=== PATIENT | female | born 1975 | race Caucasian/White ===

== ENCOUNTER 2018-06-24 04:46 | Day surgery (SDC) | payer BC, OTHER ==
[2018-06-22 18:10] VITALS: BMI 25.7
--- NOTE | 2018-06-24 13:23 | HP ---
History & Physical Update - History History: No Change - Physical Physical: No Change - Assessment Assessment: No Change - Plan Plan: No Change (Agree with H&P from 06/22/18, for hysteroscopic polypectomy and D &C)
[2018-06-24] MEDS ORDERED: MIDAZOLAM HCL 2 MG/2 ML SINGLE DOSE VIAL ONE (13:58)
[2018-06-24] MEDS ORDERED: DEXAMETHASONE SOD PHOSPHATE 4 MG/1 ML VIAL ONE (13:58)
[2018-06-24] MEDS ORDERED: PROPOFOL 20 ML ONE ×2 (13:58→14:12)
[2018-06-24] MEDS ORDERED: fentaNYL CITRATE 250 MCG/5 ML VIAL ONE (13:58)
[2018-06-24] MEDS ORDERED: IBUPROFEN 800 MG/8 ML IJ IVPB PRN (14:03)
[2018-06-24] MEDS ORDERED: ACETAMINOPHEN 325 MG TABLET (FP) PO PRN (14:03)
[2018-06-24] MEDS ORDERED: LACTATED RINGERS SOLUTION 1,000 ML IV SCH (14:15)
[2018-06-24] MEDS ORDERED: oxyCODONE HCL 5 MG TABLET PO PRN (15:04)
[2018-06-24] MEDS ORDERED: ONDANSETRON 4 MG/2 ML VIAL IVPUSH PRN (15:04)
[2018-06-24 15:38] VITALS: TEMP 98.1
[2018-06-24 17:30] VITALS: BP 117/74; PULSE 62
--- NOTE | 2018-06-29 13:08 | PATH ---
Surgical Pathology Report Patient Name: MAI REYEZ [facility]. Rec. #: [id number] /Age/Gender: 1975 (Age: 43) / F Account: [id number] Location: [facility] Taken: 06/24/2018 Received: 06/25/2018 Reported: 06/28/2018 Physicians: Grace Watson M.D. Specimen(s) Received ENDOMETRIAL CURETTINGS AND POLYP Clinical History Endometrial polyp Final Diagnosis ENDOMETRIAL CURETTINGS AND POLYP, DILATION AND CURETTAGE: FRAGMENTS OF ENDOMETRIAL POLYP, SECRETORY ENDOMETRIUM, AND BENIGN CERVICAL TISSUE. Electronically Signed Nica Santos M.D. Gross Description Received in formalin labeled "endometrial curettings and polyp" are multiple fragments of pink-edgar tissue measuring 2 x 2 x 0.5 cm in aggregate. Entire specimen submitted in one cassette. MLSZ/06/25/2018 [facility]/06/25/2018
--- NOTE | 2018-08-06 09:04 | OP ---
DATE OF OPERATION: 06/24/2018 PREOPERATIVE DIAGNOSIS: Intrauterine polyp. POSTOPERATIVE DIAGNOSIS: Intrauterine polyp. PROCEDURE: Hysteroscopic resection of intrauterine polyp, suction dilation and curettage. SURGEON: Grace Watson DO ANESTHESIA: General by . ESTIMATED BLOOD LOSS: Minimal, 5 ml. COUNTS: Sponge, needle and instrument count correct. DISPOSITION: Stable to PACU. BRIEF HISTORY AND PROCEDURE: Patient is a 43-year-old female who had been seen in the office and on ultrasound examination was found to have an intrauterine polyp. Patient was counseled on her options and elected to undergo a hysteroscopic resection. The patient was admitted to [facility] on June 24, 2018. Consent for this procedure was confirmed upon admission. The patient was taken back to the operating room, given general anesthesia, placed in the dorsal lithotomy position, prepped and draped in the usual sterile fashion and a hard timeout was performed. A speculum was placed inside the vagina. The anterior lip was grasped with a single-tooth tenaculum and the cervix was dilated to accommodate the hysteroscope which was advanced to the fundus of the uterus. Bilateral tubal ostia were noted. An endometrial polyp was noted which was resected with the resection device. Suction D & C was performed. Another look with the camera revealed no evidence of uterine trauma or perforation. All instruments were removed from the vagina. Minimal bleeding was noted from the cervical os and the tenaculum sites. Sponge, needle and instrument count was reported to be correct and patient tolerated the procedure well, recovering in stable condition in the PACU after the procedure. GRACE WATSON DO /[id number]
== END 2018-06-24 19:00 | disposition home or self-care (01) ==
LOC: JASU-SURG 04:46
PROVIDERS: ATTEND Obstetrics & Gynecology
PROC: 0UB98ZX Excision of Uterus, Via Natural or Artificial Opening Endoscopic, Diagnostic (ICD-10-PCS; principal; 2018-06-24 14:00)
PROC: 0UDB8ZX Extraction of Endometrium, Via Natural or Artificial Opening Endoscopic, Diagnostic (ICD-10-PCS; 2018-06-24 14:00)
DX: N84.0 Polyp of corpus uteri (principal)
CPT/HCPCS: 86850; 86900; 86901; 88305-TC; 94760